=== PATIENT | male | born 1965 | race Caucasian/White ===

== ENCOUNTER → 2016-11-06 | Day surgery (SDC) | payer OTHER ==
[~2016-11-06] MED LIST: BUPIVACAINE/EPINEPHRINE 0.25% 50 ML VIAL ONE; KETOROLAC TROMETHAMINE 30 MG/ML (IVP) VIAL IV PUSH ONE; LACTATED RINGER'S 1000 ML INJ 1,000 ML ONE; MEPERIDINE HCL 50 MG/ML VIAL ONE; MIDAZOLAM HCL 2 MG/2 ML VIAL ONE; ONDANSETRON HCL 4 MG/2 ML VIAL IV PUSH ONE; PROPOFOL 200 MG/20 ML AMP IV ONE; ceFAZolin INJ 1,000 MG VIAL ONE; oxyCODONE/ACETAMINOPHEN 5 MG/325 MG TAB ONE
--- NOTE | 2016-11-06 13:01 | TN ---
cc: LETTY LOAIZA M.D. DATE OF SURGERY 11/06/2016 PREOPERATIVE DIAGNOSIS Right knee medial meniscus tear. Degenerative arthritis of the right knee. POSTOPERATIVE DIAGNOSIS 1. Right knee medial and lateral meniscus tears. 2. Right knee chondromalacia patella, medial femoral condyle, lateral femoral condyle grade 3A and B. 3. Diffuse synovitis involving the intercondylar notch and the suprapatellar pouch. 4. Hypertrophic osteoarthritis right knee through all three compartments. PROCEDURE PERFORMED 1. Right knee abrasion arthroplasty medial femoral condyle. 2. Right knee arthroscopy with partial medial and lateral meniscectomy. 3. Right knee arthroscopic chondroplasty medial and lateral femoral condyle and patellofemoral joint. 4. Synovectomy right knee. ANESTHESIA General via laryngeal mask augmented by local infiltration. BLOOD LOSS Minimal FLUID REPLACEMENT 300 cc of crystalloid TOURNIQUET TIME 38 minutes at 300 mmHg. IMPLANTS No implants were utilized. COUNTS All counts were correct. COMPLICATIONS There were no intraoperative complications. INDICATIONS FOR PROCEDURE Mr. Freire is a 50-year-old gentleman who had a known history of underlying degenerative arthritis with meniscus pathology of his right knee. He underwent arthroscopic debridement 20 years ago with good relief and has developed problems with progressive recurrent mechanical symptoms and pain ever since. More recently, the symptoms have escalated to the point where they have not been improved with injection and a repeat MRI shows evidence of significant meniscal pathology in addition to his underlying arthritis which does not appear to be bone on bone in any compartment. As a result of his intolerance of his symptoms and failure of further conservative management, he is being taken to the operating room for arthroscopic debridement of the knee. He was aware of the risks, benefits, potential complications and limitations of the procedure and full written informed consent was obtained. DESCRIPTION OF PROCEDURE After the patient was properly identified in the holding area. He had correctly marked his right knee and I had initialed it as well. A significant intra-articular effusion was appreciated today as well and his symptoms are about as bad as they have ever been this morning. He was given one gram of intravenous Ancef in the holding area and was taken in the operating suite and was placed under general laryngeal mask anesthetic by Dr. Denny. At this time, he had a well-padded thigh-high tourniquet applied to his right leg and then he was prepped with alcohol and Hibiclens and draped in the normal standard fashion including alcohol and Hibiclens. He was then draped including an impermeable stocking from the foot all the way up to the midcalf level. A brief time-out at this point was now held. The team was in agreement and the case was now begun. At this time, the leg was elevated and the tourniquet was applied after the leg was exsanguinated with an Donal wrap. Standard anteromedial and anterolateral joint line portals were made. The medial one slightly further medial then the surgery in 1996, the lateral portal was made over the exact same incision site. The scope was introduced. A moderate clear effusion was evacuated. Inflow was initiated and a survey of the joint was as follows. The suprapatellar pouch showed moderate hypertrophic synovial tissue which was debrided with an oscillating shaver and it showed quite advanced chondromalacia of the medial and lateral facets of the patella. There were numerous areas of unstable cartilage that were debrided from the patellar side. There was also some retinacular calcification that was also debrided as well. I was able to get the majority the unstable tissue off with chondroplasty alone. At this time, the medial compartment was now explored. The medial gutter showed no evidence of any loose bodies or significant synovitis, however, the medial compartment did reveal evidence of a degenerative tear seen in the medial meniscus involving the midbody and posteriorly as well as some fraying seen towards the anterior horn as well. The partial medial meniscectomy was performed, but please note changes consistent with previous partial medial meniscectomy were evident. There was a very large area on the medial femoral condyle involving almost the majority of the weightbearing surface of grade 3 and A and B chondromalacia. There was some thinning of the medial tibial plateau, but nothing down to bare bone on that side. Due to all the unstable cartilage, I went ahead and performed a chondroplasty eliminated all the unstable tissue and then in a central portion directly over the end weightbearing portion, there was a 1 cm squared area that was down to full-thickness cartilage loss. I went ahead and performed an abrasion arthroplasty at this site to further encourage ingrowth of fibrocartilage at this site to improve some of his medial pain. Please note that the medial meniscus was probed after a partial meniscectomy and it was a quite stable rim and there was no longer any flaps of unstable cartilage on the femoral side. Please note that a pinkish appearance to the deepest portion of the medial femoral condyle where the abrasion was performed was evident. At this time, the intercondylar notch was now explored after the medial compartment work was finished. The intercondylar notch showed a fair amount of hypertrophic scar that was present over the front of the ACL, but the ACL was found to be intact after I went ahead and debrided the synovial tissue. The ACL tensioned appropriately with anterior drawer. The lateral compartment was now entered. There was a degenerative appearing tear seen on the central portion of the lateral meniscus from the midbody to the posterior horn which was debrided with hand instruments and further smoothed with a shaver. At this time, there was a large area of chondromalacia of the lateral femoral condyle with a fair amount of unstable tissue laterally. I went ahead and performed a chondroplasty of the lateral femoral condyle in order to eliminate this. The area was not large enough for deep enough to consider an abrasion arthroplasty. The tibial surfaces were relatively spared. The lateral gutter was now explored. No loose bodies or significant synovitis was appreciated. The knee was then thoroughly irrigated and suctioned decompressed several times. I went ahead back into the patellofemoral joint space and had intentions of excising hypertrophic osteophytes however, they were not unstable as plain radiographs were concerning for. They were probed and I elected not to remove them as it simply would cause excessive bleeding and potentially may not relieve him of his symptoms. At this time, the knee was suctioned decompressed one final time. The instruments were then all removed. The portals were closed with 3-0 nylon simple sutures and then 30 cc of quarter percent Marcaine with epinephrine was infiltrated subcutaneously, as well as intraarticularly for postop pain relief. The leg was then dressed with Xeroform, 4x4s, ABD's and an Donal wrap. The tourniquet was let down. There was brisk return of capillary refill. He was awoken from anesthesia and taken to recovery in stable condition. We will allow weightbearing as tolerated but he does have crutches as needed. Letty Loaiza MD Electroniclly Signed MD VIDHI Kebede/DJLiz /12:27 PM /12:43 PM MTDDm
== END | disposition home or self-care (01) ==
LOC: ESDC 09:10
PROVIDERS: ATTEND Orthopaedic Surgery Sports Medicine
DX: S83.241A Other tear of medial meniscus, current injury, right knee, initial encounter (principal); S83.281A Other tear of lateral meniscus, current injury, right knee, initial encounter; M22.41 Chondromalacia patellae, right knee; M65.9 Synovitis and tenosynovitis, unspecified; M17.11 Unilateral primary osteoarthritis, right knee
CPT/HCPCS: 01400; 29880; J0690; J1885; J2175; J2250; J2405; J3010; J7120